=== PATIENT | female | born 1950 | race Caucasian/White ===

== ENCOUNTER 2017-09-23 05:45 | Day surgery (SDC) | payer OTHER ==
[~2017-09-23] VITALS: Ht 162.6 cm; Wt 65.8 kg
[2017-09-23] MEDS ORDERED: ceFAZolin 1,000 MG VIAL ONE (08:08)
[2017-09-23] MEDS ORDERED: ACETAMINOPHEN/CODEINE 300/30MG 1 TAB PO PRN (08:55)
[2017-09-23] MEDS ORDERED: MORPHINE SULFATE 4 MG/ML SYR IM/IVP PRN (08:55)
[2017-09-23] MEDS ORDERED: IBUPROFEN 800 MG TAB PO PRN (08:55)
[2017-09-23] MEDS ORDERED: SEVOFLURANE 250 ML BTL INH ONE (09:11)
[2017-09-23] MEDS ORDERED: PROPOFOL 200 MG/20 ML VIAL IV ONE (09:11)
[2017-09-23] MEDS ORDERED: KETOROLAC 60 MG/2 ML VIAL IM ONE (09:11)
[2017-09-23] MEDS ORDERED: ONDANSETRON 4 MG/2 ML VIAL ONE (09:11)
[2017-09-23] MEDS ORDERED: DEXAMETHASONE 4 MG/ML VIAL ONE (09:11)
[2017-09-23] MEDS ORDERED: MIDAZOLAM 2 MG/2 ML VIAL ONE ×2 (09:12→11:12)
[2017-09-23] MEDS ORDERED: fentaNYL 0.05 MG/ML VIAL ONE (09:12)
[2017-09-23] MEDS ORDERED: MORPHINE SULFATE 4 MG/ML SYR ONE ×4 (09:13→11:03)
[2017-09-23] MEDS ORDERED: MORPHINE SULFATE 4 MG/ML SYR IVP PRN ×6 (09:40)
[2017-09-23] MEDS ORDERED: MIDAZOLAM 2 MG/2 ML VIAL IV ONE ×3 (09:40)
[2017-09-23] MEDS ORDERED: METOCLOPRAMIDE 10 MG/2 ML INJ VIAL IVP PRN ×3 (09:40)
[2017-09-23] MEDS ORDERED: MORPHINE SULFATE 2 MG/ML SYR IVP PRN ×3 (09:40)
[2017-09-23] MEDS ORDERED: MIDAZOLAM 2 MG/2 ML VIAL IVP ONE (11:05)
[2017-09-23 17:13] VITALS: BP 125/63
== END 2017-09-23 18:30 | disposition home or self-care (01) ==
LOC: UNDOADMIN 05:45 → MMU 05:45 → MDS 05:45 → MMU 05:45 → EDSTATUS 09:00 → MMU 10:22 → MTU 10:22 → MDS 18:30
PROVIDERS: ATTEND Obstetrics & Gynecology
DX: N81.10 Cystocele, unspecified (principal); N81.6 Rectocele; N39.3 Stress incontinence (female) (male); Z72.89 Other problems related to lifestyle; Z88.8 Allergy status to other drugs, medicaments and biological substances; Z91.09 Other allergy status, other than to drugs and biological substances
CPT/HCPCS: 36415; 57220; 57260; 86886; 86900; 86901; 87081; J0690; J1100; J1885; J2250; J2270; J2405; J2704; J3010; J7030; J7060; J7120

== ENCOUNTER 2018-05-31 12:27 | Emergency (ER) | payer OTHER ==
[~2018-05-31] VITALS: Ht 162.6 cm; Wt 65.3 kg
[2018-05-31 12:31] VITALS: BP 121/78
--- NOTE | 2018-05-31 12:48 | NUR ---
pt. ambulated to ER bed 5
--- NOTE | 2018-05-31 13:10 | NUR ---
68/ F BIB SELF, PATIENT WAS REFERRED BY CLINIC TO COME TO THE ER. CLINIC DOCTOR TOLD PATIENT THAT HER EKG WAS ABNORMAL. PATIENT SEEKED CARE DUE TO HEADACHE X3 DAYS, PATIENT DENIES PAIN AT THIS TIME, STATES PAIN IS INTERMITTENT. PATIENT DENIES INJURY OR TRUAMA. DENIES SOB OR CP, BREATHING EVEN AND UNLABORED. PATIENT AOX4, CLEAR SPEECH, STEADY GAIT, DENIES NUMBNESS OR TINGLING, N/V/D. PATIENT REPORTS FEELING CHILLS X1 DAY.
[2018-05-31 14:43] VITALS: BP 133/76
--- NOTE | 2018-05-31 14:43 | NUR ---
Patient discharged with v/s stable. Written and verbal after care instructions given and explained. Patient alert, oriented and verbalized understanding of instructions. Ambulatory with steady gait. All questions addressed prior to discharge. ID band removed. Patient advised to follow up with PMD. Rx of VICKY ROWLAND given. Patient educated on indication of medication including possible reaction and side effects. Opportunity to ask questions provided and answered.
== END 2018-05-31 14:42 | disposition home or self-care (01) ==
LOC: MED 12:27
DX: B34.9 Viral infection, unspecified (principal); R51 Headache; R03.0 Elevated blood-pressure reading, without diagnosis of hypertension; F17.200 Nicotine dependence, unspecified, uncomplicated; Z88.6 Allergy status to analgesic agent
CPT/HCPCS: 93005; 99283

== ENCOUNTER 2019-10-18 18:03 | Emergency (ER) | payer OTHER ==
[~2019-10-18] VITALS: Ht 162.6 cm; Wt 65.8 kg
[2019-10-18 18:12] VITALS: BP 137/79
--- NOTE | 2019-10-18 18:43 | NUR ---
BIB SELF C/O L EAR PAIN X 1 WEEK. DENIES TRAUMA. MED HX : DENIES. PATIENT STATES PAIN OF 10/10 AT THIS TIME.
--- NOTE | 2019-10-18 21:01 | NUR ---
Dr. Jo examining patient.
[2019-10-18] MEDS ORDERED: IBUPROFEN 600 MG TAB PO ONE (21:15)
--- NOTE | 2019-10-18 21:24 | NUR ---
Patient discharged with v/s stable. Written and verbal after care instructions given and explained. Patient alert, oriented and verbalized understanding of instructions. Ambulatory with steady gait. All questions addressed prior to discharge. ID band removed. Patient advised to follow up with PMD. Rx of CIPROFLOXACIN OTIC SOLUTION given. Patient educated on indication of medication including possible reaction and side effects. Opportunity to ask questions provided and answered.
== END 2019-10-18 21:24 | disposition home or self-care (01) ==
LOC: MED 18:03
DX: H60.92 Unspecified otitis externa, left ear (principal); F17.210 Nicotine dependence, cigarettes, uncomplicated; Z98.890 Other specified postprocedural states
CPT/HCPCS: 99283; C1758

== ENCOUNTER 2022-01-29 16:27 | Emergency (ER) | payer OTHER ==
[~2022-01-29] VITALS: Ht 162.6 cm; Wt 60.8 kg
[~2022-01-29 16:27] MED LIST: ALBU3SOL83 IH; ALBU6.7H IH; ATOR20TA40 PO; DEXT5SYR3 PO; FURO-570 PO; LISI5TAB24 PO; NICO14TD30 TD; OSEL30CA2 PO; PUL.5N NEB
[2022-01-29 16:32] VITALS: BP 150/102
[2022-01-29] MEDS ORDERED: ALBUTEROL 0.083% 2.5 MG/3 ML NEBU INH ONE (17:00)
[2022-01-29] MEDS ORDERED: DEXAMETHASONE 10 MG/ML VIAL IVP ONE (17:00)
[2022-01-29 17:13] LABS: BASOPHILS # (AUTO) 0.1 K/uL (0.00-0.22); BASOPHILS % (AUTO) 1.1 % (0.0-2.0); EOSINOPHILS # (AUTO) 0.2 K/uL (0-0.4); EOSINOPHILS % (AUTO) 2.5 % (0.0-4.0); HEMATOCRIT 35.1 % (36-48); HEMOGLOBIN 11.7 g/dL (12.0-16.0); LYMPHOCYTES # (AUTO) 1.7 K/uL (2.5-16.5); LYMPHOCYTES % (AUTO) 24.9 % (20.5-51.1); MEAN CORPUSCULAR HEMOGLOBIN 30 pg (27-31); MEAN CORPUSCULAR HGB CONC 33 g/dL (33-37); MEAN CORPUSCULAR VOLUME 90.7 fL (80-94); MONOCYTES # (AUTO) 0.3 K/uL (0.8-1.0); MONOCYTES % (AUTO) 3.9 % (1.7-9.3); NEUTROPHILS # (AUTO) 4.6 K/uL (1.8-7.7); NEUTROPHILS % (AUTO) 67.6 % (42.2-75.2); PLATELET COUNT (AUTO) 355 K/uL (140-450); RED BLOOD CELL COUNT(AUTO) 3.87 MIL/uL (4.20-5.40); RED CELL DISTRIBUTION WIDTH 14.1 % (11.6-13.7); WHITE BLOOD COUNT (AUTO) 6.9 K/uL (4.8-10.8)
[2022-01-29 17:29] LABS: ALBUMIN 3.4 g/dL (3.4-5.0); ANION GAP 13.1 (8-16); CARBON DIOXIDE 27.6 mmol/L (21-32); CREATININE 0.6 mg/dL (0.6-1.3); POTASSIUM 3.7 mmol/L (3.5-5.1); TOTAL BILIRUBIN 1.3 mg/dL (0.0-1.0)
--- NOTE | 2022-01-29 17:33 | NUR ---
PT C/O SOB X2 DAYS PROGRESSIVELY GETTING WORSE. SPEAKING IN FULL SENTENCES. RA 93%. IV INSERTED TO LEFT FA #[id number].
[2022-01-29] MEDS ORDERED: IPRATROPIUM 0.02% 0.5 MG/2.5 ML NEBU INH ONE (18:40)
[2022-01-29] MEDS ORDERED: FUROSEMIDE 40 MG/4 ML VIAL IVP ONE (18:40)
--- NOTE | 2022-01-29 19:30 | NUR ---
Patient lying in bed, a/ox4, chest rise and fall symmetrical, no c/o of pain or s/s of discomfort.
[2022-01-29 19:50] VITALS: BP 126/84
--- NOTE | 2022-01-29 19:50 | NUR ---
Patient does not wish to proceed with medical care recommended by Dr. Granados. Patient given information related to possible complications, up to and including , which could occur as a result of leaving hospital at this time. Patient verbalizes understanding of risks involved leaving against medical advice. Patient has signed AMA form.
== END 2022-01-29 19:50 | disposition left against medical advice (07) ==
LOC: MED 16:27
DX: I50.9 Heart failure, unspecified (principal); J45.901 Unspecified asthma with (acute) exacerbation; F12.10 Cannabis abuse, uncomplicated
CPT/HCPCS: 36415; 71045; 80053; 83880; 84484; 85025; 93005; 94640; 96374; 96375; 99285; J1100; J1940; J7613; J7644

== ENCOUNTER 2022-05-12 10:23 | Inpatient (IN) | payer OTHER ==
[~2022-05-12] VITALS: Ht 162.6 cm; Wt 59.4 kg
[~2022-05-12 10:23] MED LIST changes: -ALBU6.7H IH; +ALBU6.7H6 IH
[2022-05-12 10:32] VITALS: BP 132/75
--- NOTE | 2022-05-12 10:36 | NUR ---
AMBULATED TO BED 11
[2022-05-12 10:57] LABS: BASOPHILS # (AUTO) 0.1 K/uL (0.00-0.22); BASOPHILS % (AUTO) 0.8 % (0.0-2.0); EOSINOPHILS # (AUTO) 0.1 K/uL (0-0.4); HEMATOCRIT 32.5 % (36-48); HEMOGLOBIN 10.9 g/dL (12.0-16.0); LYMPHOCYTES # (AUTO) 1.6 K/uL (2.5-16.5); LYMPHOCYTES % (AUTO) 22.9 % (20.5-51.1); MEAN CORPUSCULAR HEMOGLOBIN 29 pg (27-31); MEAN CORPUSCULAR HGB CONC 33 g/dL (33-37); MEAN CORPUSCULAR VOLUME 86.7 fL (80-94); MONOCYTES # (AUTO) 0.4 K/uL (0.8-1.0); MONOCYTES % (AUTO) 5.9 % (1.7-9.3); NEUTROPHILS # (AUTO) 4.7 K/uL (1.8-7.7); NEUTROPHILS % (AUTO) 68.4 % (42.2-75.2); PLATELET COUNT (AUTO) 334 K/uL (140-450); RED BLOOD CELL COUNT(AUTO) 3.75 MIL/uL (4.20-5.40); RED CELL DISTRIBUTION WIDTH 15.5 % (11.6-13.7); WHITE BLOOD COUNT (AUTO) 6.8 K/uL (4.8-10.8)
[2022-05-12] MEDS ORDERED: ALBUTEROL SULFATE/IPRATROPIU 3 ML SOL IH ONE (11:00)
[2022-05-12 11:29] LABS: ALBUMIN 3.8 g/dL (3.4-5.0); ANION GAP 12.9 (8-16); ASPARTATE AMINOTRANSFERASE 19 U/L (15-37); CARBON DIOXIDE 27.5 mmol/L (21-32); CHLORIDE 105 mmol/L (98-107); CREATININE 0.8 mg/dL (0.6-1.3); GLUCOSE 119 mg/dL (74-106); POTASSIUM 3.4 mmol/L (3.5-5.1); SODIUM SERUM 142 mmol/L (136-145); TOTAL BILIRUBIN 2.6 mg/dL (0.0-1.0); UREA NITROGEN, BLOOD 17 mg/dL (7-18)
[2022-05-12] MEDS ORDERED: FUROSEMIDE 40 MG/4 ML VIAL IVP ONE (12:00)
--- NOTE | 2022-05-12 12:11 | NUR ---
PT RESTING COMFORTABLY IN BED, NO SIGNS OF ACUTE DISTRESS. PT. DENIES ANY PAIN
[2022-05-12] MEDS ORDERED: POTASSIUM CHLORIDE 10 MEQ TABER PO PRN (12:45)
[2022-05-12] MEDS ORDERED: ACETAMINOPHEN 325 MG TAB PO PRN (12:45)
[2022-05-12] MEDS ORDERED: ONDANSETRON 4 MG/2 ML VIAL IVP PRN (12:45)
[2022-05-12] MEDS ORDERED: MORPHINE SULFATE 2 MG/ML SYR IVP PRN (12:45)
[2022-05-12] MEDS ORDERED: MAG SULF 2000 MG/WATER PREMIX 50 ML IV PRN (12:45)
[2022-05-12] MEDS ORDERED: LORazepam 2 MG/ML VIAL IVP PRN (12:45)
[2022-05-12] MEDS ORDERED: ALBUTEROL 0.083% 2.5 MG/3 ML NEBU INH PRN (12:45)
[2022-05-12] MEDS ORDERED: ZOLPIDEM 10 MG TAB PO PRN (12:45)
[2022-05-12] MEDS ORDERED: DOCUSATE SODIUM 100 MG GELCAP PO PRN (12:45)
--- NOTE | 2022-05-12 15:25 | NUR ---
PT. IS RESTING IN BED, AAOX4, CALM AND COOPERATIVE, VERBALLY RESPONSIVE, AND SHOWS NO SIGNS OF ACUTE RESP DISTRESS
--- NOTE | 2022-05-12 16:45 | NUR ---
PT ARRIVED TO [facility] VIA GURNEY. AMBULATED FROM HALLWAY TO BED. ORIENTED PT TO UNIT, ROOM AND RESTROOM. AOX4 ON RA. RESPIRATIONS EVEN AND UNLABORED. NO SOB NOTED. IV ON L F/A 20G. VS: TEMP 97.2, PULSE 95, BP126/68, RR16,O2 SATURATING 93%. PT ABLE TO VERBALIZE NEEDS. CALL LIGHT WITHIN REACH. ALL SAFETY MEASURES IN PLACE.
--- NOTE | 2022-05-12 16:54 | NUR ---
PT ADMITTED AND TRANSFERRED TO BED 104B TELE. PT. TRANSFERRED WITH CARDIAC MONITORING. PT. TRANSFERRED SUCCESSFULLY. PT. HANDED OFF AND REPORT GIVEN TO VALENTÍN VILLANUEVA, BEDSIDE. PT. IS AAOX4, CALM AND COOPERATIVE, VERBALLY RESPONSIVE, AND SHOWS NO SIGNS OF ACUTE RESP DISTRESS.
--- NOTE | 2022-05-12 17:31 | NUR ---
ER DID NOT COVER POTASSIUM. POTASSIUM COVERAGE GIVEN NOW.
--- NOTE | 2022-05-12 19:20 | NUR ---
ENDORSED PT TO RATCHET SETTER NURSE FOR CONTINUITY OF CARE. PT IN STABLE CONDITION.
--- NOTE | 2022-05-12 19:40 | NUR ---
RECEIVED PT SLEEPING, OPEN EYES TO NAME, VITAL SIGNS TAKEN, SAT-89% ON ROOM AIR, PUT ON O2 2L VIA NC, SAT WENT UP TO 93%, DENIES ANY PAIN, PLAN OF CARE DISCUSSED, SAFETY MEASURES IN PLACE, CALL LIGHT WITHIN REACH.
[2022-05-12 20:00] VITALS: BP 128/84
[2022-05-13] VITALS: BP 119/76
--- NOTE | 2022-05-13 01:21 | NUR ---
PT REQUESTING FOR A SLEEPING PILL, AMBIEN PO PRN GIVEN, MONITORED CLOSELY.
[2022-05-13 04:00] VITALS: BP 138/95
--- NOTE | 2022-05-13 04:10 | NUR ---
PT SLEEPING, EASILY AROUSABLE, VITAL SIGNS STABLE, DENIES PAIN, NO SOB NOTED, MONITORED CLOSELY.
[2022-05-13 06:56] LABS: BASOPHILS % (AUTO) 0.6 % (0.0-2.0); EOSINOPHILS # (AUTO) 0.3 K/uL (0-0.4); EOSINOPHILS % (AUTO) 4.2 % (0.0-4.0); HEMATOCRIT 32.5 % (36-48); HEMOGLOBIN 10.8 g/dL (12.0-16.0); LYMPHOCYTES # (AUTO) 1.8 K/uL (2.5-16.5); LYMPHOCYTES % (AUTO) 28.3 % (20.5-51.1); MEAN CORPUSCULAR HEMOGLOBIN 29 pg (27-31); MEAN CORPUSCULAR HGB CONC 33 g/dL (33-37); MEAN CORPUSCULAR VOLUME 86.5 fL (80-94); MONOCYTES # (AUTO) 0.5 K/uL (0.8-1.0); MONOCYTES % (AUTO) 7.7 % (1.7-9.3); NEUTROPHILS # (AUTO) 3.9 K/uL (1.8-7.7); NEUTROPHILS % (AUTO) 59.2 % (42.2-75.2); PLATELET COUNT (AUTO) 338 K/uL (140-450); RED BLOOD CELL COUNT(AUTO) 3.76 MIL/uL (4.20-5.40); RED CELL DISTRIBUTION WIDTH 15.1 % (11.6-13.7); WHITE BLOOD COUNT (AUTO) 6.5 K/uL (4.8-10.8)
--- NOTE | 2022-05-13 07:20 | NUR ---
PT SLEEPING, NO SIGNS OF DISTRESS, REPORT GIVEN TO VALENTÍN MCCULLOUGH FOR CONTINUITY OF CARE.
[2022-05-13 08:00] VITALS: BP 129/80
--- NOTE | 2022-05-13 08:00 | NUR ---
RECEIVED REPORT FROM COLLEGE ADMINISTRATOR FOR CONTINUITY OF CARE. PATIENT ALERT AWAKE ORIENTED X4, NOT IN DISTRESS NOTED. NO SOB NOTED. ON ROOM AIR SATURATING 98%. ON TELE SHOWS SR W/ BBB. AMBULATES TO THE BATHROOM. DENIES PAIN AT THIS TIME. CALL LIGHT WITHIN REACH, BED IN LOW POSITION. WILL CONTINUE TO MONITOR.
[2022-05-13 08:36] LABS: CHLORIDE 104 mmol/L (98-107); CREATININE 0.7 mg/dL (0.6-1.3); GLUCOSE 85 mg/dL (74-106); SODIUM SERUM 139 mmol/L (136-145); UREA NITROGEN, BLOOD 19 mg/dL (7-18)
[2022-05-13] MEDS: ATORVASTATIN 20 MG TAB PO SCH (08:38)
[2022-05-13] MEDS: lisinopriL 5 MG TAB PO SCH (08:38)
[2022-05-13] MEDS: FUROSEMIDE 40 MG/4 ML VIAL IVP SCH (08:39)
--- NOTE | 2022-05-13 09:00 | NUR ---
DUE MEDICATION GIVEN AND TOLERATED WELL.
--- NOTE | 2022-05-13 10:04 | NUR ---
PATIENT HAS BEEN SCREENED AND CATEGORIZED MODERATE NUTRITION RISK. PATIENT WILL BE SEEN WITHIN 3-5 DAYS OF ADMISSION. REVIEWED BY JULIANN GRAMAJO RD
[2022-05-13 12:00] VITALS: BP 128/88
[2022-05-13] MEDS ORDERED: ALBUTEROL SULFATE/IPRATROPIU 3 ML SOL IH SCH (12:00)
--- NOTE | 2022-05-13 12:00 | NUR ---
DISCHARGE PLANNING PATIENT IS A 72-YEAR-OLD FEMALE ADMITTED AT [facility]/ED ON 05/12/2022, DUE TO CONGESTIVE HEART FAILURE. [place] MET WITH PATIENT AND DAUGHTER JESUS PEARSON AT BEDSIDE TO DISCUSS AND GATHER COLLATERAL INFORMATION. PATIENT WAS AWAKE AND ALERT. PATIENT WAS ABLE TO PROVIDE HER OWN INFORMATION HOWEVER; HER DAUGHTER JESUS WAS ABLE TO ASSIST PATIENT AND ALSO PROVIDE SOME OF PATIENT'S INFORMATION. PATIENT REPORTED THAT SHE LIVES ALONE AT HOME WITH HER PET CAT. PER PATIENT SHE HAS GOOD FAMILY FAMILY SUPPORT. PER PATIENT SHE HAS NO ADVANCE DIRECTIVES AND DECLINED ALL INF. FORMS PROVIDED BY [place]. PER PATIENT HER DAUGTHER JESUS PEARSON IS HER EMERGENCY CONTACT, AND HER MEDICAL DECISION MAKER. PER PATIENT SHE HAS GOOD RELATIONSHIP WITH HER PCP JACKIE MADRIGAL WHO SHE SAW LAST ON 02/13/2022. SW DISCUSSED WITH PATIENT AND WITH DAUGTHER THE IMPORTANCE OF MAKING A FOLLOW UP APPOINTMENT AFTER HER DISCHARGE. PER PATIENT AND HER DAUGTHER SHE WILL MAKE HER OWN APPOINTMENT WHEN SHE IS DISCHARGE FROM [facility] AND DECLINED FOR SW TO MAKE HER APPOINTMENT PATIENT REPORTED THAT HER DAUGTHER WILL BE APPLYING WITH [employer] TO BE HER CAREGIVER. PER DAUGHTER PATIENT HAS NO ISSUES GETTING OR TAKING HER MEDICATIONS AND REPORTED PICKING UP HER MEDS FROM [facility] . PER PATIENT SHE HAS NO NEED FOR DME. PER PATIENT SHE WILL GO HOME AT DISCHARGE WHEN SHE IS READY AND STABLE FOR DISCHARGE FROM [facility] WITH THE ASSISTANCE OF HER DAUGTHER JESUS WITH TRANSPORTATION. [place] DISCUSSED WITH DAUGHTER ABOUT POSSIBLE [facility]rake RECOMMENDATIONS PER DAUGTHER AND PATIENT SHE IS OPEN FOR RECOMMENDATION TO HOME HEALTH ONLY. [place] THANKED BOTH PATIENT AND DAUGTHER FOR ALL THE INFORMATION PROVIDED. [place]/CM WILL FOLLOW UP NEEDED.
--- NOTE | 2022-05-13 12:00 | NUR ---
PT EVAL DONE, AMBULATES WELL ON ROOM AIR, NO SOB NOTED.
[2022-05-13] MEDS ORDERED: ALBUTEROL SULFATE/IPRATROPIU 3 ML SOL IH PRN (12:05)
[2022-05-13] MEDS: ALBUTEROL SULFATE/IPRATROPIU 3 ML SOL IH SCH ×2 (14:04→20:09)
[2022-05-13 14:33] LABS: APPEARANCE,URINE CLEAR (CLEAR); BILIRUBIN,URINE NEGATIVE (NEGATIVE); BLOOD, URINE TRACE-L (NEGATIVE); COLOR,URINE YELLOW (YELLOW); LEUKOCYTE ESTERASE ,URINE TRACE (NEGATIVE); NITRITE, URINE NEGATIVE (NEGATIVE); UGLUCOSE NEGATIVE (NEGATIVE)
[2022-05-13 15:00] LABS: OTHER CASTS, URINE None Seen /LPF (None Seen); RBC,URINE 0-5 /HPF (0-5); WBC,URINE 0-5 /HPF (0-5)
[2022-05-13 16:00] VITALS: BP 113/60
--- NOTE | 2022-05-13 18:45 | NUR ---
PATIENT RESTING IN BED, DENIES SOB AND CHEST PAIN. WILL ENDORSE TO THE HAND MOLDER AND CASTER FOR CONTINUITY OF CARE. IN STABLE CONDITION.
--- NOTE | 2022-05-13 19:20 | NUR ---
RECEIVED PATIENT LYING ON THE BED, IS AWAKE, ALERT AND ORIENTED. DENIES PAIN, DENIES SOB UPON ASSESSMENT. IV ACCESS SITE ON LFA G 20, SALINE LOCK, FLUSH WITHOUT RESISTANCE. CALL LIGHT WITHIN REACH. SAFETY MEASURES IN PLACE.
[2022-05-13 20:00] VITALS: BP 115/67
--- NOTE | 2022-05-13 22:53 | NUR ---
CHECK ON PATIENT, PATIENT IS ASLEEP, NO SIGNS OF DISTRESS NOTED, CALL LIGHT WITHIN REACH.
[2022-05-14] VITALS: BP 118/66
--- NOTE | 2022-05-14 00:10 | NUR ---
VITALS T 97.5, P 84, BP 118/66, RESP 22 AND O2 SATS @92% ON ROOM AIR. NO SIGNS OF PAIN NOTED, BREATHING EVEN AND NON LABORED. CALL LIGHT WITHIN REACH.
[2022-05-14 04:00] VITALS: BP 128/75
[2022-05-14] MEDS: ALBUTEROL SULFATE/IPRATROPIU 3 ML SOL IH SCH ×2 (06:50→12:36)
--- NOTE | 2022-05-14 07:00 | NUR ---
PT SLEEPING. WILL RETURN FOR BREATHING TREATMENT. NO DISTRESS NOTED.
--- NOTE | 2022-05-14 07:17 | NUR ---
PATIENT IN STABLE CONDITION. ENDORSED TO DAY NURSE FOR CONTINUITY OF CARE. NEEDS MET THROUGHOUT THE SHIFT.
--- NOTE | 2022-05-14 07:48 | NUR ---
RECEIVED REPORT FROM ACCESS LEAD FOR CONTINUITY OF CARE. PATIENT ALERT AWAKE ORIENTED X4, NOT IN ANY DISTRESS NOTED. ON ROOM AIR. NO SOB NOTED. DENIES CHEST PAIN. BED IN LOW POSITION. CALL LIGHT WITHIN REACH. WILL CONTINUE TO MONITOR.
[2022-05-14 08:00] VITALS: BP 114/59
[2022-05-14] MEDS: FUROSEMIDE 40 MG/4 ML VIAL IVP SCH (08:36)
[2022-05-14] MEDS: ATORVASTATIN 20 MG TAB PO SCH (08:36)
[2022-05-14] MEDS ORDERED: METOPROLOL SUCCINATE 50 MG TABER PO SCH (09:00)
[2022-05-14] MEDS ORDERED: METO50TE2 PO (09:13)
[2022-05-14] MEDS: lisinopriL 5 MG TAB PO SCH (09:46)
--- NOTE | 2022-05-14 12:50 | NUR ---
PATIENT DC TO HOME ACCOMPANIED BY FAMILY WITH DC INSTRUCTION GIVEN AND VERBALIZED UNDERSTANDING. IV HEPLOCK REMOVED AND HEART MONITOR. IN STABLE CONDITION.
== END 2022-05-14 12:50 | disposition home or self-care (01) | DRG 291 ==
LOC: MED 10:23 → MTU 12:44
PROVIDERS: ADMIT Family Medicine; ATTEND Family Medicine
DX: I11.0 Hypertensive heart disease with heart failure (principal); I50.23 Acute on chronic systolic (congestive) heart failure; J96.00 Acute respiratory failure, unspecified whether with hypoxia or hypercapnia; I42.0 Dilated cardiomyopathy; D64.9 Anemia, unspecified; E78.00 Pure hypercholesterolemia, unspecified; E80.6 Other disorders of bilirubin metabolism; F15.10 Other stimulant abuse, uncomplicated; I34.0 Nonrheumatic mitral (valve) insufficiency; Z20.822 Contact with and (suspected) exposure to COVID-19; Z88.6 Allergy status to analgesic agent; Z88.8 Allergy status to other drugs, medicaments and biological substances; Z79.899 Other long term (current) drug therapy; Z91.14 Patient's other noncompliance with medication regimen; J44.9 Chronic obstructive pulmonary disease, unspecified
CPT/HCPCS: 36415; 71045; 80048; 80053; 81001; 83735; 83880; 84484; 85025; 85379; 87081; 93005; 94640; 99285; J1940; Q0092

== ENCOUNTER 2022-05-29 22:07 | Inpatient (IN) | payer OTHER ==
[~2022-05-29] VITALS: Ht 162.6 cm; Wt 59.0 kg
[~2022-05-29 22:07] MED LIST changes: +METO50TE2 PO; -OSEL30CA2 PO
[2022-05-29 22:10] VITALS: BP 120/79
--- NOTE | 2022-05-29 22:10 | NUR ---
to bed ambulatory
--- NOTE | 2022-05-29 22:40 | NUR ---
PT WALKED IN C/O INTERMITTENT SOB. PT STATES SHE WAS RECENTLY DIAGNOSED WITH "HEART PROBLEMS" THE LAST TIME SHE WAS SEEN FOR SOB. PT STATES SHE RECENTLY STARTED TAKING HER MEDICATIONS. PT REPORTS +FARFAN. PT ABLE TO SPEAK IN CLEAR, COMPLETE SENTENCES, RR EVEN AND UNLABORED, NAD. PT DENIES CP.
[2022-05-29 23:58] LABS: BASOPHILS % (AUTO) 0.6 % (0.0-2.0); EOSINOPHILS # (AUTO) 0.2 K/uL (0-0.4); EOSINOPHILS % (AUTO) 2.1 % (0.0-4.0); HEMATOCRIT 31.7 % (36-48); HEMOGLOBIN 10.4 g/dL (12.0-16.0); LYMPHOCYTES # (AUTO) 1.7 K/uL (2.5-16.5); LYMPHOCYTES % (AUTO) 22.6 % (20.5-51.1); MEAN CORPUSCULAR HEMOGLOBIN 29 pg (27-31); MEAN CORPUSCULAR HGB CONC 33 g/dL (33-37); MEAN CORPUSCULAR VOLUME 87.7 fL (80-94); MONOCYTES # (AUTO) 0.5 K/uL (0.8-1.0); MONOCYTES % (AUTO) 6.5 % (1.7-9.3); NEUTROPHILS # (AUTO) 5.3 K/uL (1.8-7.7); NEUTROPHILS % (AUTO) 68.2 % (42.2-75.2); PLATELET COUNT (AUTO) 322 K/uL (140-450); RED BLOOD CELL COUNT(AUTO) 3.62 MIL/uL (4.20-5.40); RED CELL DISTRIBUTION WIDTH 15.7 % (11.6-13.7); WHITE BLOOD COUNT (AUTO) 7.7 K/uL (4.8-10.8)
[2022-05-30 00:12] LABS: ALBUMIN 3.7 g/dL (3.4-5.0); ANION GAP 9.1 (8-16); ASPARTATE AMINOTRANSFERASE 18 U/L (15-37); CARBON DIOXIDE 27.1 mmol/L (21-32); CHLORIDE 105 mmol/L (98-107); CREATININE 0.7 mg/dL (0.6-1.3); GLUCOSE 132 mg/dL (74-106); POTASSIUM 4.2 mmol/L (3.5-5.1); SODIUM SERUM 137 mmol/L (136-145); TOTAL BILIRUBIN 1.9 mg/dL (0.0-1.0); UREA NITROGEN, BLOOD 15 mg/dL (7-18)
[2022-05-30] MEDS ORDERED: FUROSEMIDE 40 MG/4 ML VIAL IVP ONE (00:45)
--- NOTE | 2022-05-30 00:58 | NUR ---
BELONGINGS LIST DONE.
--- NOTE | 2022-05-30 01:11 | NUR ---
MEDICATION RECONCILIATION COMPLETED/UPDATED WITH PATIENT/FAMILY MEMBER.
[2022-05-30 01:33] LABS: APPEARANCE,URINE CLOUDY (CLEAR); BILIRUBIN,URINE NEGATIVE (NEGATIVE); BLOOD, URINE NEGATIVE (NEGATIVE); LEUKOCYTE ESTERASE ,URINE TRACE (NEGATIVE); NITRITE, URINE POSITIVE (NEGATIVE); UGLUCOSE NEGATIVE (NEGATIVE)
[2022-05-30 01:34] LABS: COLOR,URINE ORANGE (YELLOW)
[2022-05-30 01:36] LABS: RBC,URINE 0-5 /HPF (0-5)
--- NOTE | 2022-05-30 01:39 | NUR ---
WALKED URINE TO LAB.
[2022-05-30] MEDS ORDERED: KCL 20 MEQ/WATER INJ PREMIX 200 ML IV PRN (02:00)
[2022-05-30] MEDS ORDERED: ACETAMINOPHEN 325 MG TAB PO PRN (02:00)
[2022-05-30] MEDS ORDERED: HYDROcodone/APAP 5/325 MG 1 TAB TAB PO PRN (02:00)
[2022-05-30] MEDS ORDERED: MAGNESIUM OXIDE 400 MG TAB PO PRN (02:00)
[2022-05-30] MEDS ORDERED: MORPHINE SULFATE 4 MG/ML SYR IVP PRN (02:00)
[2022-05-30] MEDS ORDERED: ONDANSETRON 4 MG/2 ML VIAL IVP PRN (02:00)
[2022-05-30] MEDS ORDERED: MAG SULF 2000 MG/WATER PREMIX 50 ML IV PRN (02:00)
[2022-05-30] MEDS ORDERED: POTASSIUM CHLORIDE 10 MEQ TABER PO PRN (02:00)
--- NOTE | 2022-05-30 02:35 | NUR ---
REPORT GIVEN TO ELIZABET ALDANA
[2022-05-30] MEDS ORDERED: cefTRIAXone 1,000 MG VIAL ONE (03:07)
[2022-05-30 04:02] VITALS: BP 113/74
--- NOTE | 2022-05-30 06:20 | NUR ---
RECEIVED PATIENT AND REPORT FROM ER DEPT. FOR CONTINUITY OF CARE. PATIENT IS AWAKE, STABLE, A&O X4. ORIGINAL COMPLAINT OF SOB SINCE THE PAST WEEKEND. PATIENT IS IN NO PAIN AT THIS TIME. CURRENTLY ON 2L NC WITH NO SIGNS OF ACUTE DISTRESS NOTED. IV SITE LOCATED AT THE LEFT FOREARM 18 GAUGE, INTACT AND PATENT. ORIENTED PATIENT TO ROOM, BATHROOM, BED CONTROLS, AND CALL LIGHT. BED TO LOWEST POINT, SAFETY MEASURES IN PLACE, CALL LIGHT WITHIN REACH, WILL CONTINUE TO MONITOR.
--- NOTE | 2022-05-30 07:25 | NUR ---
ENDORSED PATIENT TO DAYSHIFT NURSE FOR CONTINUITY OF CARE. PATIENT IS STABLE AT THIS TIME.
[2022-05-30] MEDS ORDERED: ALBUTEROL HFA MDI 90 MCG/ACTUATION 8 GM INH PRN (07:45)
--- NOTE | 2022-05-30 07:45 | NUR ---
RECEIVED PT CARE AND REPORT FROM KATYA LAURA. PT IS RESTING IN BED ON RIGHT SIDE WITH OU CLOSED. NO VISIBLE S/S OF DISTRESS, DISCOMFORT, PAIN OR SOB. CALL LIGHT IS WITHIN REACH, ALL NEEDS MET AT THIS TIME.
[2022-05-30 08:00] VITALS: BP 113/69
[2022-05-30] MEDS ORDERED: ALBUTEROL 0.083% 2.5 MG/3 ML NEBU INH PRN (08:10)
[2022-05-30] MEDS: ATORVASTATIN 20 MG TAB PO SCH (08:21)
[2022-05-30] MEDS: FUROSEMIDE 40 MG/4 ML VIAL IVP SCH ×2 (08:21→21:00)
[2022-05-30] MEDS: METOPROLOL SUCCINATE 50 MG TABER PO SCH (08:22)
--- NOTE | 2022-05-30 10:22 | NUR ---
PATIENT HAS BEEN SCREENED AND CATEGORIZED MODERATE NUTRITION RISK. PATIENT WILL BE SEEN WITHIN 3-5 DAYS OF ADMISSION. JULIANN GRAMAJO RD
[2022-05-30 12:00] VITALS: BP 113/68
[2022-05-30 16:00] VITALS: BP 118/81
[2022-05-30] MEDS ORDERED: MELATONIN 3 MG TAB PO PRN (16:50)
--- NOTE | 2022-05-30 17:46 | NUR ---
DISCHARGE PLANNING PATIENT IS A 72-YEAR-OLD FEMALE ADMITTED ON 05/30/2022 AT [facility]/ER DUE TO CONGESTIVE HEARTH FAILURE AND UTINARY INFECTION. SUPERVISOR PRESS ROOM'S MET WITH PATIENT AT BEDSIDE TO DISCUSS AND GATHER PATIENT'S COLLATERAL INFORMATION. PATIENT WAS AWAKE AND ALERT DURING THE MEETING; PER PATIENT SHE HAS GOOD FAMILY SUPPORT. PER PATIENT SHE HAS NO ADVANCE DIRECTIVES AND DECLINED ALL FORMS PROVIDED BY SW. PER PATIENT HER DAUGTHER JESUS PEARSON IS HER EMERGENCY CONTACT AND HER MEDICAL DESICION MAKER. PER PATIENT SHE LIVES HOME ALONE IN HER APARTMENT IN [facility] BY HER-SELF BUT WITH GOOD FAMILY SUPPORT AND ASSISTANCE FROM HER DAUGTHER. PER PATIENT SHE IS INDEPENDENT AND GETS AROUND HER HOME STATED THAT SHE DO NOT HAVE OR NEED DME AT HOME. PATIENT ALSO REPORTED THAT HAS NO ISSUES GETTING OR TAKING HER MEDICATIONS THAT SHE PICKS UP IN REGULAR BASIS FROM [facility] IN THE [facility] IN [facility]. IN [facility]. SW EXPLAINED TO PATIENT ON THE IMPORTANCE OF MAKING A FOLLOW UP APPOINTMENT WITH HER PCP EVELYN MEJIA. PER PATIENT SHE HAS A FOLLOW UP APPOINTMENT ALREADY SCHEDULED ON 06/05/2022 AT 2:30PM. PER PATIENT SHE WANTS TO GO BACK HOME WHEN SHE IS READY AND STABLE TO DISCHARGE HOME WITH THE ASSISTANCE OF HER DAUGHTER WITH TRANSPORTATION BACK HOME. PATIENT IS NOT OPEN FOR ANY RECOMMENDATIONS AT THIS TIME. SW THANKED HER FOR THE INFORMATION AND ENDED THE MEETING. [place]/CM WILL FOLLOW UP NEEDED.
--- NOTE | 2022-05-30 18:36 | NUR ---
PATIENT IS SITTING AT BEDSIDE, A&OX4, APPEARS CALM. NO VISIBLE S/S OF DISTRESS OR DISCOMFORT. DENIES ANY PAIN OR SOB AT THIS TIME. CALL LIGHT IS WITHIN REACH, ALL NEEDS MET AT THIS TIME. WILL ENDORSE TO NOC SHIFT.
--- NOTE | 2022-05-30 19:30 | NUR ---
RECEIVED ENDORSEMENT FROM NAEEM LAURA (REGISTRY), PATIENT WAS STABLE AT THIS TIME. PATIENT IS SITTING AT BEDSIDE AND WAS ABLE TO DESCRIBE WHY SHE IS HERE. NO COMPLAINTS OF PAIN/DISCOMFORT. NO NOTED S/S OF RESPIRATORY DISTRESS. NO SUCTIONING TONIGHT BECAUSE GI WILL BE OBSERVING FOR THE MEDICATION REACTION. DENIES ANY PAIN OR SOB AT THIS TIME. CALL LIGHT IS WITHIN REACH, ALL NEEDS MET AT THIS TIME. [email or web address]
[2022-05-30 20:00] VITALS: BP 104/62
--- NOTE | 2022-05-30 20:00 | NUR ---
Patient's Plan of Care was discussed and reviewed with SANAZ MCNEAL:
[2022-05-30] MEDS: ALBUTEROL SULFATE/IPRATROPIU 3 ML SOL IH SCH ×2 (20:30→20:31)
[2022-05-30] MEDS: BUDESONIDE 0.5 MG/2 ML NEBU INH SCH (20:30)
[2022-05-31] VITALS: BP 103/73
--- NOTE | 2022-05-31 00:11 | NUR ---
PATIENT WAS HUNGRY AND WAS GIVEN TURKEY SANDWICH. MIDNIGHT VITAL SIGNS WERE STABLE. [email or web address]
--- NOTE | 2022-05-31 02:29 | NUR ---
PATIENT IS COMPLAINING OF MUCUS AND WANTS SLEEPING PILL BUT TOO LATE TO GIVE. NURSING WILL GIVE EDUCATION AND CLOSE THE DOOR TO ROOM TO CONTROL THE NOISE. [email or web address]
[2022-05-31 04:00] VITALS: BP 103/65
--- NOTE | 2022-05-31 06:24 | NUR ---
PAIN MEDICATION EFFECTIVE. NO NOTED S/S OF PAIN/DISCOMFORT. PATIENT REMAIN CLEAN AND DRY. PATIENT IS ASLEEP AT THIS TIME. [email or web address]
[2022-05-31 07:05] LABS: BASOPHILS # (AUTO) 0.1 K/uL (0.00-0.22); BASOPHILS % (AUTO) 0.9 % (0.0-2.0); EOSINOPHILS # (AUTO) 0.3 K/uL (0-0.4); EOSINOPHILS % (AUTO) 4.6 % (0.0-4.0); HEMATOCRIT 35.1 % (36-48); HEMOGLOBIN 11.3 g/dL (12.0-16.0); LYMPHOCYTES # (AUTO) 2.2 K/uL (2.5-16.5); LYMPHOCYTES % (AUTO) 30.3 % (20.5-51.1); MEAN CORPUSCULAR HEMOGLOBIN 29 pg (27-31); MEAN CORPUSCULAR HGB CONC 32 g/dL (33-37); MEAN CORPUSCULAR VOLUME 89.1 fL (80-94); MONOCYTES # (AUTO) 0.7 K/uL (0.8-1.0); MONOCYTES % (AUTO) 9.5 % (1.7-9.3); NEUTROPHILS # (AUTO) 3.9 K/uL (1.8-7.7); NEUTROPHILS % (AUTO) 54.7 % (42.2-75.2); PLATELET COUNT (AUTO) 322 K/uL (140-450); RED BLOOD CELL COUNT(AUTO) 3.94 MIL/uL (4.20-5.40); RED CELL DISTRIBUTION WIDTH 15.3 % (11.6-13.7); WHITE BLOOD COUNT (AUTO) 7.1 K/uL (4.8-10.8)
--- NOTE | 2022-05-31 07:10 | NUR ---
ENDORSED PATIENT TO NAEEM LAURA (REGISTRY), PATIENT WAS STABLE DURING SHIFT REPORT. [email or web address]
[2022-05-31 07:12] LABS: ALBUMIN 3.9 g/dL (3.4-5.0); ANION GAP 13.3 (8-16); ASPARTATE AMINOTRANSFERASE 7 U/L (15-37); CARBON DIOXIDE 30.7 mmol/L (21-32); CHLORIDE 101 mmol/L (98-107); CREATININE 0.8 mg/dL (0.6-1.3); GLUCOSE 62 mg/dL (74-106); SODIUM SERUM 141 mmol/L (136-145); TOTAL BILIRUBIN 1.6 mg/dL (0.0-1.0); UREA NITROGEN, BLOOD 26 mg/dL (7-18)
--- NOTE | 2022-05-31 07:57 | NUR ---
RECEIVED PT CARE AND REPORT FROM MACKENZIE MCNEAL. PT IS SITTING SEMI FOWLERS IN BED, A&OX4, APPEARS CALM. NO VISIBLE S/S OF DISTRESS OR DISCOMFORT. DENIES ANY PAIN OR SOB. PT STATES SHE HAD TROUBLE SLEEPING AND WANTS TO REST. CALL LIGHT IS WITHIN REACH, ALL NEEDS MET AT THIS TIME.
[2022-05-31 08:00] VITALS: BP 120/69
[2022-05-31] MEDS: ATORVASTATIN 20 MG TAB PO SCH (08:41)
[2022-05-31] MEDS: FUROSEMIDE 40 MG/4 ML VIAL IVP SCH (08:41)
[2022-05-31] MEDS: METOPROLOL SUCCINATE 50 MG TABER PO SCH (08:41)
[2022-05-31] MEDS ORDERED: lisinopriL 5 MG TAB PO SCH (09:00)
[2022-05-31 12:00] VITALS: BP 111/64
[2022-05-31] MEDS: BUDESONIDE 0.5 MG/2 ML NEBU INH SCH (13:03)
[2022-05-31] MEDS: ALBUTEROL SULFATE/IPRATROPIU 3 ML SOL IH SCH ×2 (13:03→17:33)
[2022-05-31 16:00] VITALS: BP 106/64
--- NOTE | 2022-05-31 16:04 | NUR ---
TEXTED DR. BAUMAN TO ASK ABOUT CARDIAC CLEARANCE FOR PATIENT. FAMILY IS TRAVELING FROM [place] AND WERE WONDERING ABOUT DISCHARGE SO THEY CAN PICK HER UP WHILE THEY ARE HERE. DR. BAUMAN RESPONDED THAT PATIENT IS CLEARED FROM HIS STANDPOINT. TEXTED DR. ALVARADO TO INFORM. HE STATED THAT PT CAN DC AND HE WILL PUT THE ORDER IN FOR DC.
[2022-05-31] MEDS ORDERED: LISI5TAB24 PO (16:33)
[2022-05-31] MEDS ORDERED: FURO-570 PO (16:33)
[2022-05-31] MEDS ORDERED: NITR100C7 PO (16:33)
[2022-05-31 17:08] VITALS: BP 106/64
== END 2022-05-31 18:47 | disposition home or self-care (01) | DRG 291 ==
LOC: MED 22:07 → MTU 05-30 02:00
PROVIDERS: ADMIT Internal Medicine; ATTEND Internal Medicine
DX: I11.0 Hypertensive heart disease with heart failure (principal); I50.23 Acute on chronic systolic (congestive) heart failure; N39.0 Urinary tract infection, site not specified; R65.10 Systemic inflammatory response syndrome (SIRS) of non-infectious origin without acute organ dysfunction; I42.0 Dilated cardiomyopathy; E78.5 Hyperlipidemia, unspecified; J44.9 Chronic obstructive pulmonary disease, unspecified; Z20.822 Contact with and (suspected) exposure to COVID-19; F15.10 Other stimulant abuse, uncomplicated; Z88.6 Allergy status to analgesic agent; Z79.899 Other long term (current) drug therapy
CPT/HCPCS: 36415; 71046; 80053; 81001; 83735; 83880; 84484; 85025; 87081; 87086; 94640; 94664; 96374; 99291; J0696; J1644; J1940; J7060; J7613; J7626; Q0092

== ENCOUNTER 2023-01-22 05:40 | Observation (INO) | payer OTHER ==
[~2023-01-22] VITALS: Ht 162.6 cm; Wt 68.0 kg
[2023-01-22] VITALS (10 sets, daily range): BP systolic 113–142; BP diastolic 72–91; PULSE 88–104; RESP 15–24; TEMP 97–97.6; O2SAT 93–98
[~2023-01-22 05:40] MED LIST changes: -DEXT5SYR3 PO; -NICO14TD30 TD; +NITR100C7 PO
[2023-01-22 06:45] LABS: BASOPHILS # (AUTO) 0.1 K/uL (0.00-0.22); BASOPHILS % (AUTO) 0.4 % (0.0-2.0); EOSINOPHILS # (AUTO) 0.2 K/uL (0-0.4); EOSINOPHILS % (AUTO) 1.6 % (0.0-4.0); HEMATOCRIT 32.8 % (36-48); HEMOGLOBIN 11.1 g/dL (12.0-16.0); LYMPHOCYTES # (AUTO) 1.7 K/uL (2.5-16.5); LYMPHOCYTES % (AUTO) 13.5 % (20.5-51.1); MEAN CORPUSCULAR HEMOGLOBIN 32 pg (27-31); MEAN CORPUSCULAR HGB CONC 34 g/dL (33-37); MEAN CORPUSCULAR VOLUME 93.8 fL (80-94); MONOCYTES # (AUTO) 0.6 K/uL (0.8-1.0); MONOCYTES % (AUTO) 4.8 % (1.7-9.3); NEUTROPHILS % (AUTO) 79.7 % (42.2-75.2); PLATELET COUNT (AUTO) 326 K/uL (140-450); RED CELL DISTRIBUTION WIDTH 13.9 % (11.6-13.7); WHITE BLOOD COUNT (AUTO) 12.6 K/uL (4.8-10.8)
[2023-01-22 07:01] LABS: FLU A ANTIGEN negative (NEGATIVE); FLU B ANTIGEN NEGATIVE (NEGATIVE)
[2023-01-22 07:10] LABS: ALANINE AMINOTRANSFERASE 25 U/L (12-78); ALBUMIN 3.3 g/dL (3.4-5.0); ALKALINE PHOSPHATASE 100 U/L (50-136); ANION GAP 9.5 (8-16); ASPARTATE AMINOTRANSFERASE 21 U/L (15-37); CARBON DIOXIDE 26.8 mmol/L (21-32); CHLORIDE 104 mmol/L (98-107); CREATININE 0.6 mg/dL (0.6-1.3); GLUCOSE 106 mg/dL (74-106); POTASSIUM 3.3 mmol/L (3.5-5.1); SODIUM SERUM 137 mmol/L (136-145); TOTAL BILIRUBIN 1.9 mg/dL (0.0-1.0); TOTAL PROTEIN, SERUM 6.5 g/dL (6.4-8.2); UREA NITROGEN, BLOOD 13 mg/dL (7-18)
[2023-01-22 07:15] LABS: MAGNESIUM 1.8 mg/dL (1.8-2.4); PHOSPHORUS 3.2 mg/dL (2.5-4.9)
[2023-01-22] MEDS ORDERED: cefTRIAXone 1,000 MG VIAL ONE ×2 (07:21→07:40)
[2023-01-22] MEDS ORDERED: FUROSEMIDE 40 MG/4 ML VIAL IVP ONE (07:30)
[2023-01-22] MEDS ORDERED: POTASSIUM CHLORIDE 10 MEQ TABER PO ONE (07:35)
[2023-01-22 08:15] LABS: LACTIC ACID 0.7 mmol/L (0.4-2.0)
[2023-01-22] MEDS ORDERED: LORazepam 1 MG TAB PO PRN (09:25)
[2023-01-22] MEDS ORDERED: MAG SULF 2000 MG/WATER PREMIX 50 ML IV PRN (09:25)
[2023-01-22] MEDS ORDERED: HYDROcodone/APAP 5/325 MG 1 TAB TAB PO PRN (09:25)
[2023-01-22] MEDS ORDERED: ONDANSETRON 4 MG/2 ML VIAL IVP PRN (09:25)
[2023-01-22] MEDS ORDERED: POTASSIUM CHLORIDE 10 MEQ TABER PO PRN (09:25)
[2023-01-22] MEDS ORDERED: ACETAMINOPHEN 325 MG TAB PO PRN (09:25)
[2023-01-22] MEDS ORDERED: ZOLPIDEM 5 MG TAB PO PRN (09:25)
[2023-01-22] MEDS ORDERED: KCL 20 MEQ IN 100 mL PREMIX 200 ML IV PRN (09:25)
[2023-01-22] MEDS ORDERED: MORPHINE SULFATE 4 MG/ML SYR IVP PRN (09:25)
[2023-01-22 10:55] LABS: APPEARANCE,URINE CLEAR (CLEAR); BILIRUBIN,URINE NEGATIVE (NEGATIVE); BLOOD, URINE TRACE-I (NEGATIVE); COLOR,URINE YELLOW (YELLOW); LEUKOCYTE ESTERASE ,URINE NEGATIVE (NEGATIVE); NITRITE, URINE NEGATIVE (NEGATIVE); PROTEIN,URINE NEGATIVE (NEGATIVE); UGLUCOSE NEGATIVE (NEGATIVE); UROBILINOGEN,URINE 0.2 EU/dL (0.2 - 1)
[2023-01-22 11:10] LABS: AMPHETAMINE, URINE POSITIVE ng/ml (NEG <=1000); BARBITURATE, URINE NEGATIVE ng/ml (NEG <=200); BENZODIAZEPINE, URINE NEGATIVE ng/mL (NEG <=200); CANNABINOID, URINE POSITIVE ng/mL (NEG <=50); COCAINE, URINE NEGATIVE ng/mL (NEG <=300); OPIATE, URINE NEGATIVE ng/mL (NEG <=2000); PHENCYCLIDINE SCREEN,URINE NEGATIVE ng/mL (NEG <=25)
[2023-01-22] MEDS: AZITHROMYCIN 500 MG in DEXTROSE 5% 250 ML IV SCH (13:13)
[2023-01-22] MEDS: FUROSEMIDE 40 MG/4 ML VIAL IVP SCH ×2 (13:29→20:39)
[2023-01-22] MEDS ORDERED: POTASSIUM CHLORIDE 10 MEQ TABER PO SCH (13:36)
[2023-01-22 15:31] LABS: URINE TOTAL PROTEIN 11.6 mg/dL (0-12); URINE TPRO CREAT RATIO 0.4 (0-0.20)
[2023-01-22] MEDS: ALBUTEROL SULFATE/IPRATROPIU 3 ML SOL IH SCH (19:28)
[2023-01-23] VITALS (8 sets, daily range): BP systolic 100–137; BP diastolic 53–70; PULSE 71–89; RESP 17–20; TEMP 97.2–97.9; O2SAT 93–98
[2023-01-23 04:01] LABS: APPEARANCE,URINE CLEAR (CLEAR); BILIRUBIN,URINE NEGATIVE (NEGATIVE); BLOOD, URINE NEGATIVE (NEGATIVE); COLOR,URINE YELLOW (YELLOW); LEUKOCYTE ESTERASE ,URINE TRACE (NEGATIVE); NITRITE, URINE NEGATIVE (NEGATIVE); PROTEIN,URINE NEGATIVE (NEGATIVE); UGLUCOSE NEGATIVE (NEGATIVE); UROBILINOGEN,URINE 0.2 EU/dL (0.2 - 1)
[2023-01-23 04:08] LABS: BACTERIA,URINE >30 (MANY) /HPF (None Seen); MUCUS,URINE 1+ /LPF (None Seen); RBC,URINE 0-5 /HPF (0-5); SQUAMOUS EPITHELIAL CELL,UR 0-3 (FEW) /LPF (0-3 (FEW))
[2023-01-23 05:31] LABS: BASOPHILS % (AUTO) 0.5 % (0.0-2.0); EOSINOPHILS # (AUTO) 0.2 K/uL (0-0.4); EOSINOPHILS % (AUTO) 2.7 % (0.0-4.0); HEMOGLOBIN 12.4 g/dL (12.0-16.0); LYMPHOCYTES # (AUTO) 1.8 K/uL (2.5-16.5); LYMPHOCYTES % (AUTO) 21.9 % (20.5-51.1); MEAN CORPUSCULAR HEMOGLOBIN 31 pg (27-31); MEAN CORPUSCULAR HGB CONC 34 g/dL (33-37); MEAN CORPUSCULAR VOLUME 93.1 fL (80-94); MONOCYTES # (AUTO) 0.5 K/uL (0.8-1.0); MONOCYTES % (AUTO) 6.4 % (1.7-9.3); NEUTROPHILS # (AUTO) 5.7 K/uL (1.8-7.7); NEUTROPHILS % (AUTO) 68.5 % (42.2-75.2); PLATELET COUNT (AUTO) 349 K/uL (140-450); RED BLOOD CELL COUNT(AUTO) 3.98 MIL/uL (4.20-5.40); RED CELL DISTRIBUTION WIDTH 13.8 % (11.6-13.7); WHITE BLOOD COUNT (AUTO) 8.4 K/uL (4.8-10.8)
[2023-01-23 06:21] LABS: ANION GAP 14.4 (8-16); CALCIUM 9.5 mg/dL (8.5-10.1); CARBON DIOXIDE 26.9 mmol/L (21-32); CHLORIDE 99 mmol/L (98-107); GLUCOSE 149 mg/dL (74-106); POTASSIUM 3.3 mmol/L (3.5-5.1); SODIUM SERUM 137 mmol/L (136-145); UREA NITROGEN, BLOOD 20 mg/dL (7-18)
[2023-01-23] MEDS: ALBUTEROL SULFATE/IPRATROPIU 3 ML SOL IH SCH ×3 (07:12→19:10)
[2023-01-23] MEDS: FUROSEMIDE 40 MG/4 ML VIAL IVP SCH ×2 (08:34→20:05)
[2023-01-23] MEDS: METOPROLOL SUCCINATE 50 MG TABER PO SCH (08:34)
[2023-01-23] MEDS: lisinopriL 5 MG TAB PO SCH (08:34)
[2023-01-23] MEDS: AZITHROMYCIN 500 MG in DEXTROSE 5% 250 ML IV SCH (09:16)
[2023-01-23] MEDS ORDERED: POTASSIUM CHLORIDE 10 MEQ TABER PO SCH (10:45)
[2023-01-24] VITALS (7 sets, daily range): BP systolic 101–114; BP diastolic 62–70; PULSE 64–95; RESP 16–18; TEMP 97.2–98.5; O2SAT 91–100
[2023-01-24 06:05] LABS: BASOPHILS # (AUTO) 0.1 K/uL (0.00-0.22); EOSINOPHILS # (AUTO) 0.2 K/uL (0-0.4); EOSINOPHILS % (AUTO) 3.6 % (0.0-4.0); HEMATOCRIT 36.3 % (36-48); HEMOGLOBIN 12.1 g/dL (12.0-16.0); LYMPHOCYTES # (AUTO) 2.1 K/uL (2.5-16.5); LYMPHOCYTES % (AUTO) 31.8 % (20.5-51.1); MEAN CORPUSCULAR HEMOGLOBIN 31 pg (27-31); MEAN CORPUSCULAR HGB CONC 33 g/dL (33-37); MEAN CORPUSCULAR VOLUME 92.9 fL (80-94); MONOCYTES # (AUTO) 0.5 K/uL (0.8-1.0); MONOCYTES % (AUTO) 7.5 % (1.7-9.3); NEUTROPHILS # (AUTO) 3.6 K/uL (1.8-7.7); NEUTROPHILS % (AUTO) 56.1 % (42.2-75.2); PLATELET COUNT (AUTO) 363 K/uL (140-450); RED BLOOD CELL COUNT(AUTO) 3.91 MIL/uL (4.20-5.40); RED CELL DISTRIBUTION WIDTH 13.9 % (11.6-13.7); WHITE BLOOD COUNT (AUTO) 6.5 K/uL (4.8-10.8)
[2023-01-24 06:27] LABS: ANION GAP 13.7 (8-16); CALCIUM 9.5 mg/dL (8.5-10.1); CARBON DIOXIDE 26.7 mmol/L (21-32); CHLORIDE 103 mmol/L (98-107); CREATININE 0.8 mg/dL (0.6-1.3); GLUCOSE 122 mg/dL (74-106); POTASSIUM 4.4 mmol/L (3.5-5.1); SODIUM SERUM 139 mmol/L (136-145); UREA NITROGEN, BLOOD 30 mg/dL (7-18)
[2023-01-24] MEDS: ALBUTEROL SULFATE/IPRATROPIU 3 ML SOL IH SCH ×2 (07:06→13:47)
[2023-01-24] MEDS: METOPROLOL SUCCINATE 50 MG TABER PO SCH (08:24)
[2023-01-24] MEDS: FUROSEMIDE 40 MG/4 ML VIAL IVP SCH (08:24)
[2023-01-24] MEDS: lisinopriL 5 MG TAB PO SCH (08:24)
[2023-01-24] MEDS: AZITHROMYCIN 500 MG in DEXTROSE 5% 250 ML IV SCH (09:15)
[2023-01-24] MEDS ORDERED: POTASSIUM CHLORIDE 10 MEQ TABER PO SCH (14:16)
[2023-01-24] MEDS ORDERED: FURO40TA9 PO (15:08)
[2023-01-24] MEDS ORDERED: POTA10TA70 PO (15:08)
[2023-01-24] MEDS ORDERED: FUROSEMIDE 40 MG TAB PO SCH (17:00)
== END 2023-01-24 16:30 | disposition home or self-care (01) ==
LOC: MED 05:40 → MTU 09:25
PROVIDERS: ADMIT Internal Medicine; ATTEND Internal Medicine
DX: I11.0 Hypertensive heart disease with heart failure (principal); I50.23 Acute on chronic systolic (congestive) heart failure; Z20.822 Contact with and (suspected) exposure to COVID-19; J96.01 Acute respiratory failure with hypoxia; I34.0 Nonrheumatic mitral (valve) insufficiency; E78.5 Hyperlipidemia, unspecified; J44.9 Chronic obstructive pulmonary disease, unspecified; E87.6 Hypokalemia; E44.0 Moderate protein-calorie malnutrition; E80.6 Other disorders of bilirubin metabolism; D63.8 Anemia in other chronic diseases classified elsewhere; F15.90 Other stimulant use, unspecified, uncomplicated; F12.90 Cannabis use, unspecified, uncomplicated; D72.829 Elevated white blood cell count, unspecified; Z79.899 Other long term (current) drug therapy; Z87.891 Personal history of nicotine dependence
CPT/HCPCS: 36415; 71045; 78580; 80048; 80053; 80305; 81001; 81003; 82570; 83605; 83735; 83880; 84100; 84300; 84484; 85025; 87040; 87081; 87086; 87426; 87804; 93005; 94640; 94760; 96365; 96366; 96367; 96372; 96375; 96376; 99285; A9540; C8929; G0378; J0456; J0696; J1644; J1940; J7060; Q0092